=== PATIENT | female | born 1985 | race Caucasian/White ===

== ENCOUNTER 2018-03-01 20:33 | Inpatient (IN) ==
[2018-03-01] MEDS ORDERED: ONDANSETRON 4 MG/2 ML VIAL IV STA (20:57)
[2018-03-01] MEDS ORDERED: ALUM/MAG/SIMETH/LIDO VISC 1:1 30 ML BOTTLE PO STA (20:57)
[2018-03-01] MEDS ORDERED: HYDROmorphone 2 MG/1 ML VIAL IV STA (20:57)
[2018-03-01] MEDS ORDERED: PANTOPRAZOLE 40 MG VIAL IV STA (20:57)
[2018-03-01] MEDS ORDERED: SODIUM CHLORIDE 0.9% 500 ML IV STA (20:57)
[2018-03-01 21:40] LABS: Basophils # 0.1 10*3/uL (0.0-0.2); Basophils % 0.5 % (0.0-0.8); Eosinophils # 0.1 10*3/uL (0.0-0.87); Eosinophils % 0.9 % (0.00-10.9); Hematocrit 45.2 VOL% (35.7-47.0); Hemoglobin 14.5 GM/DL (12.0-16.0); Immature Granulocytes % 0.9 %; Immature Granulocytes Absolute 0.12 #; Lymphocytes # 4.4 10*3/uL (1.4-4.0); Lymphocytes % 31.4 % (21.3-54.2); Mean Corpuscular HGB Conc 32.1 GM/DL (32-36); Mean Corpuscular Hemoglobin 29 PG (27-34); Mean Corpuscular Volume 90.9 FL (87-102); Mean Platelet Volume 11.2 FL (9.6-12.0); Monocytes # 1.1 10*3/uL (0.11-0.8); Monocytes % 7.8 % (1.7-12.7); Neutrophils # 8.2 10*3/uL (1.4-7.4); Neutrophils % 58.5 % (38.7-73.9); Platelet Count 328 T/CUMM (130-400); Red Blood Count 4.97 MC/CUMM (3.8-5.5); Red Cell Distribution Width 13.9 % (9.3-17.3)
[2018-03-01 21:58] LABS: Alanine Aminotransferase 51 U/L (13-56); Albumin 4.3 G/DL (3.4-5.0); Alkaline Phosphatase 68 U/L (45-117); Amylase 47 U/L (25-115); Aspartate Amino Transferase 24 U/L (0-37); Bilirubin,Total < 0.39 MG/DL (0.2-1.0); Blood Urea Nitrogen 21 MG/DL (7-18); Calcium 9.5 MG/DL (8.5-10.1); Glucose 115 MG/DL (74-106); Osmolality,Calculated 293.6 MOS/KG (273-304); Potassium 3.6 MMOL/L (3.5-5.1); Sodium 146 MMOL/L (136-145); Total Protein 8.1 G/DL (6.4-8.3)
[2018-03-01 22:44] LABS: Apearance,Urine Slightly Hazy (Clear); Bilirubin,Urine Negative (Negative); Blood, Urine Negative (Negative); Glucose,Urine (UA) Negative (Negative); Ketones,Urine Negative (Negative); Mucus,Urine Few /LPF (Occasional); Nitrite,Urine Negative (Negative); Protein,Urine 30 MG/DL; RBC,Urine 1 /HPF (0-4); Squamous Epithelial Cell,Urine Occasional /HPF (0-10); Urine Color Yellow (Yellow); Urine Specific Gravity 1.031 (1.001-1.035); WBC,Urine 12 /HPF (0-6)
[2018-03-01] MEDS ORDERED: PIPERACILLIN/TAZOBACTAM 3,375 MG in SODIUM CHLORIDE 0.9% 100 ML IV STA (22:59)
[2018-03-01] MEDS ORDERED: LEVOFLOXACIN INJ 750 MG in PREMIX 1 EACH IV STA (22:59)
[2018-03-02] MEDS ORDERED: ACETAMINOPHEN 325 MG TABLET PO PRN (00:32)
[2018-03-02] MEDS ORDERED: ONDANSETRON 4 MG/2 ML VIAL IV PRN (00:32)
[2018-03-02] MEDS: HYDROmorphone 2 MG/1 ML VIAL IV PRN ×3 (01:44→13:51)
[2018-03-02] MEDS: SODIUM CHLORIDE 0.9% 1,000 ML IV SCH ×2 (01:45→11:17)
[2018-03-02] MEDS: PIPERACILLIN/TAZOBACTAM 3,375 MG in SODIUM CHLORIDE 0.9% 100 ML IV SCH ×2 (01:47→08:27)
[2018-03-02 07:18] LABS: Basophils # 0.1 10*3/uL (0.0-0.2); Basophils % 0.5 % (0.0-0.8); Eosinophils # 0.1 10*3/uL (0.0-0.87); Eosinophils % 1.2 % (0.00-10.9); Hematocrit 41.1 VOL% (35.7-47.0); Hemoglobin 12.9 GM/DL (12.0-16.0); Immature Granulocytes % 0.8 %; Immature Granulocytes Absolute 0.09 #; Lymphocytes # 3.7 10*3/uL (1.4-4.0); Lymphocytes % 33.7 % (21.3-54.2); Mean Corpuscular HGB Conc 31.4 GM/DL (32-36); Mean Corpuscular Hemoglobin 29 PG (27-34); Mean Corpuscular Volume 93.4 FL (87-102); Mean Platelet Volume 11.1 FL (9.6-12.0); Monocytes # 0.9 10*3/uL (0.11-0.8); Monocytes % 7.8 % (1.7-12.7); Neutrophils # 6.2 10*3/uL (1.4-7.4); Platelet Count 265 T/CUMM (130-400); Red Cell Distribution Width 13.9 % (9.3-17.3)
[2018-03-02] MEDS ORDERED: ENOXAPARIN 40 MG/0.4 ML SYRINGE SUBCUT SCH (07:30)
[2018-03-02 07:43] LABS: Albumin 3.5 G/DL (3.4-5.0); Bilirubin,Total 0.5 MG/DL (0.2-1.0); Osmolality,Calculated 288.8 MOS/KG (273-304); Potassium 3.8 MMOL/L (3.5-5.1); Total Protein 6.7 G/DL (6.4-8.3)
[2018-03-02] MEDS ORDERED: TISSUE ADHESIVE 1 EACH APPLICATOR TOP ONE (08:49)
[2018-03-02] MEDS ORDERED: LIDOCAINE 1%/EPI INJ 20 ML VIAL ONE (08:49)
[2018-03-02] MEDS ORDERED: PANTOPRAZOLE 40 MG VIAL IV SCH (09:00)
[2018-03-02] MEDS ORDERED: SUGAMMADEX 200 MG/2 ML VIAL IV ONE (11:09)
[2018-03-02] MEDS ORDERED: ONDANSETRON 4 MG/2 ML VIAL ONE (11:36)
[2018-03-02] MEDS ORDERED: SEVOFLURANE 1 UNIT/15 MINUTE INH ONE (11:36)
[2018-03-02] MEDS ORDERED: PROPOFOL 200 MG/20 ML VIAL IV ONE (11:36)
[2018-03-02] MEDS ORDERED: MIDAZOLAM 2 MG/2 ML VIAL ONE (11:36)
[2018-03-02] MEDS ORDERED: fentaNYL 100 MCG/2 ML VIAL ONE (11:36)
[2018-03-02] MEDS ORDERED: DEXAMETHASONE 4 MG/1 ML VIAL ONE (11:36)
[2018-03-02] MEDS ORDERED: KETOROLAC 30 MG/1 ML VIAL ONE (11:36)
[2018-03-02] MEDS ORDERED: ACETAMINOPHEN 1,000 MG/100 ML VIAL IV ONE (11:37)
[2018-03-02] MEDS ORDERED: ALBUTEROL INHALER 8 GM INH ONE (11:37)
[2018-03-02] MEDS ORDERED: ROCURONIUM 100 MG/10 ML VIAL IV ONE (11:37)
[2018-03-02 12:31] VITALS: BP 142/87
[2018-03-02] MEDS ORDERED: METHOCARBAMOL 750 MG TABLET PO PRN (12:40)
[2018-03-02] MEDS ORDERED: traMADol 50 MG TABLET PO PRN (12:40)
[2018-03-02] MEDS ORDERED: DICLOFENAC POTASSIUM 50 MG TABLET PO PRN (12:40)
[2018-03-02] MEDS ORDERED: ZIPRASIDONE 20 MG CAPSULE PO SCH (21:00)
[2018-03-02] MEDS ORDERED: QUEtiapine 100 MG TABLET PO SCH (21:00)
[2018-03-02] MEDS ORDERED: LITHIUM 300 MG CAPSULE PO SCH (21:00)
[2018-03-02] MEDS ORDERED: SULFAMETHOX/TRIMETHOPRIM 800-160 MG TABLET PO SCH (21:00)
[2018-03-02] MEDS ORDERED: TOPIRAMATE 100 MG TABLET PO SCH (21:00)
[2018-03-02] MEDS ORDERED: traZODone 50 MG TABLET PO SCH (21:00)
[2018-03-03] MEDS ORDERED: LEVOTHYROXINE 75 MCG TABLET PO SCH (07:00)
[2018-03-03] MEDS ORDERED: SIMVASTATIN 20 MG TABLET PO SCH (09:00)
[2018-03-03] MEDS ORDERED: FENOFIBRATE 160 MG TABLET PO SCH (09:00)
[2018-03-03] MEDS ORDERED: clonazePAM 0.5 MG TABLET PO SCH (09:00)
== END 2018-03-02 15:20 | disposition home or self-care (01) | DRG 263 ==
LOC: N.ED 20:33 → N.EDINP 23:01 → N.5E 23:35
PROVIDERS: ADMIT Surgery; ATTEND Surgery
PROC: LAPCHOL (2018-03-02 15:20)